=== PATIENT | female | born 1940 | race Caucasian/White ===

== ENCOUNTER 2019-01-02 06:45 | Emergency (ER) | payer OTHER ==
[~2019-01-02] VITALS: Ht 144.8 cm; Wt 64.9 kg
[2019-01-02 06:52] VITALS: BP 193/114
--- NOTE | 2019-01-02 06:53 | NUR ---
PT PRESENTS TO ED WITH C/O SORE THROAT X1 DAY. PT STATED HAD FEVER YESTERDAY. AAO X4, GCS 15, AMBULATORY WITH STDEAY GAIT. RESPIATIONS EVEN AND UNLABORED, BL LUNG CLEAR. SKIN WARM/PINK/DRY, +PMSC. ABDOMEN SOFT, NO DISTENDED, ACTIVE BOWEL SOUND X4. VS, BP ELEVATED, ASYMPTOMATIC. ER MD MADE AWARE OF PT STATUS. WILL CONTINEU TO MONITOR
--- NOTE | 2019-01-02 07:18 | NUR ---
REPORT GIVEN TO JUANITA MOTT
--- NOTE | 2019-01-02 07:25 | NUR ---
RECEIVED REPORT FROM BUCKLE ASSEMBLER RN. PT RESTING IN BED. NO COUGH NOTED AT THIS TIME. NO C/O PAIN. LUNGS CLEAR. AFEBRILE.
[2019-01-02] MEDS ORDERED: ACETAMINOPHEN 325 MG TAB PO ONE (07:35)
--- NOTE | 2019-01-02 07:53 | NUR ---
SWABS TAKEN TO THE LAB.
--- NOTE | 2019-01-02 09:16 | NUR ---
Patient discharged with v/s stable. Written and verbal after care instructions given and explained. Patient alert, oriented and verbalized understanding of instructions. Ambulatory with steady gait. All questions addressed prior to discharge. ID band removed. Patient advised to follow up with PMD. Rx of NORCO AND NAPROSYN given. Patient educated on indication of medication including possible reaction and side effects. Opportunity to ask questions provided and answered.
--- NOTE | 2019-01-02 09:16 | NUR ---
PT DENIES ANY DIZZINESS, PAIN OR NAUSEA AT THIS TIME.
[2019-01-02 09:17] VITALS: BP 180/97
== END 2019-01-02 09:16 | disposition home or self-care (01) ==
LOC: MED 06:45
DX: J02.9 Acute pharyngitis, unspecified (principal); I10 Essential (primary) hypertension; Z88.8 Allergy status to other drugs, medicaments and biological substances
CPT/HCPCS: 87081; 87804; 99283